=== PATIENT | female | born 1995 | race Caucasian/White ===

== ENCOUNTER 2019-03-26 16:19 | Outpatient (RCR) | payer BC, SELFPAY ==
--- NOTE | ~2019-03-26 | US_ITS ---
US umbilical doppler 03/26/2019 17:24 Indication: IUGR Procedure: Realtime limited obstetrical ultrasound including umbilical Doppler examination. Comparison: 02/26/2019 Findings: There is a single living intrauterine in breech presentation. heart rate is 143 BPM. Placenta is fundal without previa. Amniotic fluid is subjectively normal. Umbilical arteria l Doppler demonstrates peak systolic to end-diastolic velocity ratios of 3 (normal range for gestatio nal age is 2.32-4.33). Impression: 1: Single living intrauterine in breech presentation. 2: Normal S/D ratios of the umbilical artery. Reviewed, dictated and finalized at location A. STANT SURVEYOR Impression: 1: Single living intrauterine in breech presentation. 2: Normal S/D ratios of the umbilical artery.
== END 2019-05-29 07:53 | disposition home or self-care (01) ==
LOC: ANHOBOP 16:19
PROVIDERS: PCP Internal Medicine; Visit Provider Obstetrics & Gynecology
DX: O36.5990 Maternal care for other known or suspected poor fetal growth, unspecified trimester, not applicable or unspecified (principal); Z3A.00 Weeks of gestation of pregnancy not specified
CPT/HCPCS: 76820

== ENCOUNTER 2019-05-22 14:28 | Outpatient (RCR) | payer BC, SELFPAY ==
[2019-05-13 17:05] VITALS: BP 119/78; PULSE 93
[2019-05-16 11:31] VITALS: BP 112/75; PULSE 90
[2019-05-19 12:43] VITALS: BP 123/80; PULSE 94
--- NOTE | 2019-05-19 13:41 | PC.NURSE ---
Dr Barriga notified of BPP of 07/13 for movement. Informed of cord doppler results. Ok to dc home with movement precautions.
--- NOTE | 2019-05-19 13:46 | PC.NURSE ---
[id number] repeat NST after BPP remains reactive. MD notified.
--- NOTE | ~2019-05-22 | US_ITS ---
EXAMINATION: US OB BPP wo non-stress DATE: 05/13/2019 17:03 INDICATION: Small for gestational age, second trimester TECHNIQUE: Real-time pelvic ultrasound was performed. The interpreting radiologist was not present fo r the study. COMPARISON: 03/26/2019 FINDINGS: There is a single living fetus in vertex presentation. The placenta is fundal. heart rate is 14 7 beats per minute (bpm). Biophysical profile performed by the technologist: breathing (30 sec sustained breathing in 30 minutes): 2 out of 2 movement (3 gross body movements in 30 minutes): 2 out of 2 tone (one episode of hlbvdzl-mdemfeqow-qbyafuf limb movement): 2 out of 2 Amniotic fluid pocket (2 cm): 2 out of 2 Total score: 8 out of 8 IMPRESSION: 1. Single living fetus in vertex presentation. 2. Biophysical profile 8 out of 8. Reviewed, dictated and finalized at location A.
--- NOTE | ~2019-05-22 | US_ITS ---
EXAMINATION: US OB BPP wo non-stress DATE: 05/22/2019 16:13 CDT INDICATION: Hypertension. TECHNIQUE: Real-time transabdominal obstetric ultrasound. FINDINGS: 05/19/2019 There is a single living fetus in vertex presentation. The placenta is fundal without placenta previ a. cardiac activity and movement is noted with a heart rate of 132 beats per minute. Biophysical profile: breathin of 2 movement: 2 of 2 tone: 2 of 2 Amniotic flud pocket: 2 of 2 Total score: 8 of 8 IMPRESSION: 1. Single living intrauterine in vertex presentation. 2: Total biophysical profile score of 8/8. Reviewed, dictated and finalized at location A.
--- NOTE | ~2019-05-22 | US_ITS ---
EXAMINATION: US OB BPP wo non-stress, US umbilical doppler DATE: 05/19/2019 13:16 CDT INDICATION: Small for gestational age. TECHNIQUE: Real-time transabdominal obstetric ultrasound. FINDINGS: Comparison to multiple prior studies sequentially, with oldest reviewed study dated 020. There is a single living fetus in vertex presentation. The placenta is fundal without placenta previ a. cardiac activity and movement is noted with a heart rate of 119 beats per minute. Biophysical profile: breathin of 2 movement: 0 of 2 tone: 2 of 2 Amniotic flud pocket: 2 of 2 Total score: 6 of 8 Umbilical arterial Doppler demonstrates S/D ratio of 2.1 (normal range for gestational age is 1.98-3. 29 IMPRESSION: 1. Single living intrauterine in vertex presentation. 2: Total biophysical profile score of 6/8. 3: Normal umbilical artery systolic/diastolic ratios. Reviewed, dictated and finalized at location A. IMPRESSION: 1. Single living intrauterine in vertex presentation. 2: Total biophysical profile score of 6/8. 3: Normal umbilical artery systolic/diastolic ratios.
[2019-05-22 15:40] VITALS: BP 129/74; PULSE 102
== END 2019-05-29 07:53 | disposition home or self-care (01) ==
LOC: ANHOBOP 14:28
PROVIDERS: PCP Internal Medicine; Visit Provider Obstetrics & Gynecology
DX: O36.5930 Maternal care for other known or suspected poor fetal growth, third trimester, not applicable or unspecified (principal); Z3A.35 35 weeks gestation of pregnancy; Z3A.36 36 weeks gestation of pregnancy; Z3A.37 37 weeks gestation of pregnancy
CPT/HCPCS: 59025; 76819; 76820

== ENCOUNTER 2019-05-27 17:57 | Inpatient (IN) | payer BC, SELFPAY ==
[2019-05-27] VITALS (7 sets, daily range): BP systolic 116–127; BP diastolic 77–88; PULSE 85–103; TEMP 37.1; BMI 38.0
[2019-05-27] MEDS: DINOPROSTONE 10 MG VAG INSERT VAGINAL (19:01)
[2019-05-27 19:08] LABS: Basophils Percent Auto 0.3 % (0.2-1.2); Eosinophils Absolute Auto 0.2 K/mm3 (0-0.3); Eosinophils Percent Auto 1.7 % (0-4.4); Hematocrit 33.2 % (37.0-47.0); Hemoglobin 11.3 g/dL (12.0-15.0); Immature Granulocyte Absolute 0.03 K/mm3 (0.00-0.031); Immature Granulocyte Percent A 0.3 % (0-0.5); Lymphocytes Absolute Auto 2.39 K/mm3 (0.9-3.2); Lymphocytes Percent Auto 22.7 % (18.3-44.2); Mean Corpuscular Hemoglobin 29.7 pg (26-34); Mean Corpuscular Volume 87.1 fl (80-100); Mean Platelet Volume 12.1 fl (7.4-10.4); Monocytes Absolute Auto 0.6 K/mm3 (0.1-0.6); Monocytes Percent Auto 6.1 % (2.6-8.5); Neutrophils Absolute Auto 7.3 K/mm3 (1.3-6.7); Neutrophils Percent Auto 68.9 % (45.5-73.1); Platelet Count Result 155 k/mm3 (150-375); Red Blood Count 3.81 M/mm3 (4.2-5.4); Red Cell Distribution Width 13.1 % (11.5-14.5); White Blood Count 10.5 K/mm3 (4.5-10.0)
--- NOTE | 2019-05-27 19:38 | LDADM ---
This patient, Sandie Hartmann, was admitted to Labor/Delivery/Recovery 108 on 05/27/19 at 17:57. Plans for labor, pain management and were discussed with patient. Patient/family oriented to hospital policies and general routines including ID bracelet, bed and alarms, visiting hours, pain management, procedures, bathroom and other care routines, personal items, smoking policy, room service/diet and guest tray routines, infant security routines, and visiting hours. Patient/Family are encouraged to report perceived risks to care and to ask questions if they do not understand what they are told or what they should do. See OBIX for further documentation.
[2019-05-28] VITALS (91 sets, daily range): BP systolic 85–147; BP diastolic 23–117; PULSE 56–128; RESP 18; TEMP 36.4–37.2; O2SAT 95–100
[2019-05-28] MEDS: OXYTOCIN 30 UNITS/NS 500 ML 30 UNITS/500 ML BAG 6 UNITS IV CONT (05:23)
[2019-05-28] MEDS: LACTATED RINGERS 1,000 ML 125 ML IV CONT ×2 (05:23→08:19)
[2019-05-28 07:43] LABS: Rapid Plasma Reagin Non-Reactive (NonReactive)
--- NOTE | 2019-05-28 08:51 | WPDANESEPP ---
Anes - Eval Pre Procedure Procedure: labor epidural Date/Time: 05/28/19 08:51 Surgeon: cristal Pre Op Diagnosis: Induction Patient Data Age: 23 Gender: F Height: 1.57 m Weight: 94.5 kg Last Vital Signs Temp 37.2 C 05/28/19 07:30 Pulse 91 05/28/19 08:50 BP 110/72 05/28/19 08:50 Pulse Ox 99 05/28/19 08:50 Allergies Allergy/AdvReac Type Severity Reaction Status Date / Time Sulfa (Sulfonamide AdvReac Unknown Nausea and Verified 05/13/19 15:34 Antibiotics) Vomiting Home Medications Medication Instructions Recorded Confirmed Type PNV cmb#95-ferrous fumarate-FA 1 tablet PO DAILY 05/12/19 05/13/19 History [] aspirin [Aspirin Low Dose] 81 mg PO DAILY 05/12/19 05/13/19 History Laboratory Tests 05/27/19 05/27/19 05/27/19 18:57 18:57 18:57 WBC 10.5 K/mm3 H K/mm3 (4.5-10.0) RBC 3.81 M/mm3 L M/mm3 (4.2-5.4) Hgb 11.3 g/dL L g/dL (12.0-15.0) Hct 33.2 % L % (37.0-47.0) MCV 87.1 fl fl (80-100) MCH 29.7 pg pg (26-34) MCHC 34.0 g/dl g/dl (32-36) RDW 13.1 % % (11.5-14.5) Plt Count 155 k/mm3 k/mm3 (150-375) MPV 12.1 fl H fl (7.4-10.4) Immature Gran % (Auto) 0.3 % % (0-0.5) Neut % (Auto) 68.9 % % (45.5-73.1) Lymph % (Auto) 22.7 % % (18.3-44.2) [place] % (Auto) 6.1 % % (2.6-8.5) Eos % (Auto) 1.7 % % (0-4.4) Baso % (Auto) 0.3 % % (0.2-1.2) Lymph # (Auto) 2.39 K/mm3 K/mm3 (0.9-3.2) [place] # (Auto) 0.6 K/mm3 K/mm3 (0.1-0.6) Eos # (Auto) 0.2 K/mm3 K/mm3 (0-0.3) Baso # (Auto) 0.0 K/mm3 K/mm3 (0.0-0.1) Abs Immat Gran (auto) 0.03 K/mm3 K/mm3 (0.00-0.031) Absolute Neuts (auto) 7.3 K/mm3 H K/mm3 (1.3-6.7) Absolute Nucleated RBC 0.0 K/mm3 K/mm3 (0.0-0.012) Nucleated RBC % 0.0 % % (0.0-0.2) RPR Non-reactive (NonReactive) Blood Type A Positive Antibody Screen Negative Patient hx anesthesia problems: none Family hx anesthesia problems: none PMFSH Past Medical History Medical History (Updated 05/28/19 @ 08:54 by Natalie Ayers CRNA) Pyloric stenosis Family History Family History Father Family history of elevated blood lipids Hypertension Sibling Hypertension Blood clotting disorder Mother Asthma Social History Social History Smoking status: Never smoker Substance use: never Spiritual care concerns: No Exam Day of Procedure 05/28/19 08:51 Patient weight: overweight Heart: regular rate and rhythm Lungs: normal air movement Airway: Mallampati scale class II Neurological: alert and oriented
--- NOTE | 2019-05-28 11:59 | WPDHPUPDATE1 ---
History and Physical Update Update Date/Time: 05/28/19 11:59 History and Physical has been reviewed, including an updated exam of the patient. There are NO changes in the patient's condition. Risks, benefits, and alternatives have been discussed and questions answered. Patient agrees to proceed with procedure.
--- NOTE | 2019-05-28 11:59 | WPDOBADMIT ---
Obstetrics - Admit Note Admission Note: record reviewed. No pertinent additions to the history and/or any subsequent changes in the physical findings that are not consistent with the expected course of the were found. Additions to the history and/or subsequent changes in the physical findings follow. None.
--- NOTE | 2019-05-28 12:20 | PM.OBPRVD ---
OB - Delivery Note Procedure Delivery date: 05/28/19 Route of delivery: Laceration description: Perineal - 1st Degree Delivery repair: chromic Specimen: Yes Estimated blood loss (mL): 200 Anesthesia type: Epidural Disposition: floor Baby Weeks of gestation at delivery: 38 gender: Male Weight (pounds): 5 Weight (ounces): 13 presentation: vertex Placenta delivery description: Spontaneous score one minute: 8 score five minutes: 9
--- NOTE | 2019-05-28 12:23 | P.PCNOB_ITS ---
OB - Delivery Note Procedure Laceration description: Perineal - 1st Degree Estimated blood loss (mL): 200 Anesthesia type: Epidural Narrative: Patient prepped in usual sterile manner for this procedure. Maternal expulsive efforts readily delivered vertex which was section naso- oropharynx. Nuchal cord was noted and reduced x2. Rest of baby was delivered cord clamped and cut placenta delivered spontaneously cervix vagina and vulva were inspected with Dio first-degree midline laceration noted. Two 0 chromic was used to approximate vaginal tissue deep tissue in a subcuticular layer. This point seizure was considered terminated with immediate postop condition mother and baby both excellent. Baby Weeks of gestation at delivery: 38 Infant gender: Male Weight (pounds): 5 Weight (ounces): 13 presentation: vertex Placenta delivery description: Spontaneous score one minute: 8 score five minutes: 9
[2019-05-28] MEDS: OXYTOCIN 30 UNITS/NS 500 ML 30 UNITS/500 ML BAG 125 UNITS IV CONT (12:35)
--- NOTE | 2019-05-28 14:50 | PC.NURSE ---
PT arrived on unit via wheelchair accompanied by spouse and and taken to room 284. PT oriented to room and surrounding area. PT introductions made and plan of care discussed per post , pain management, breast feeding, daily care activities. Welcome packet reviewed and discussed. PT verbalized understanding of such care.
[2019-05-28] MEDS: DOCUSATE SODIUM 100 MG CAPSULE PO (16:34)
[2019-05-28] MEDS: IBUPROFEN 600 MG TABLET PO (16:34)
[2019-05-28] MEDS: LANOLIN (LANSINOH) 7.5 GM CREAM 1 APPLIC TOPICAL (16:36)
[2019-05-29 05:22] LABS: Hematocrit 30.2 % (37.0-47.0); Hemoglobin 10.2 g/dL (12.0-15.0)
[2019-05-29 08:00] VITALS: BP 121/83; PULSE 83; RESP 18; TEMP 36.6; O2SAT 98
--- NOTE | 2019-05-29 09:14 | WPDANLDPN2 ---
Anes-Prog Note L&D Date/Time: 05/29/19 09:14 Comfortable throughout: labor and delivery Neuraxial method: epidural Epidural/Spinal procedure site: clean & non-tender Neuro status: Neuro function grossly intact. Cardiovascular status: normal Respiratory status: normal Airway patency: baseline Mental status: baseline Post-Op hydration status: normal Vital Signs: Last Vital Signs Temp 37.0 C 05/28/19 20:00 Pulse 105 H 05/28/19 20:00 Resp 18 05/28/19 20:00 BP 115/74 05/28/19 20:00 Pulse Ox 98 05/28/19 16:00 I/O: Intake & Output 05/28/19 05/29/19 05/29/19 23:59 07:59 15:59 Intake Total 500 Balance 500 Patient feedback: Patient satisfied with anesthetic care.
--- NOTE | 2019-05-29 13:15 | PC.NURSE ---
Consult with pt., mother reports she attempted infant to breast and wishes to pump and bottle feed. Offered assist with latching if mother wishes. Mother has been set up with pump at bedside and is not pumping regularly. Discussed how stimulation will assist with establishing milk supply. Instructions given on breast pump care and usage, pumping schedule, nipple care, and collection and storage of breast milk. Encouraged [id number], breast massage and manual expression to stimulate supply. Assessed patient for correct flange size, placement and draw, mother reports she has no difficulties or discomfort with pumping. Patient verbalizes and demonstrates understanding of instructions.
--- NOTE | 2019-05-29 15:30 | PC.NURSE ---
Pt introductions made and plan of care discussed per post , pain management, breast pumping, bottle feeding, daily care activities. PT verbalized understanding of such care.
[2019-05-29] MEDS: IBUPROFEN 600 MG TABLET PO (17:19)
[2019-05-29] MEDS: DOCUSATE SODIUM 100 MG CAPSULE PO (17:19)
[2019-05-29] MEDS: WITCH HAZEL 40 PADS 1 PAD TOPICAL (17:23)
[2019-05-29] MEDS: BENZOCAINE 20% AER SPR (*SP) 56 GM CAN 1 SPRAY TOPICAL (17:23)
[2019-05-29 20:30] VITALS: BP 121/82; PULSE 75; RESP 14; TEMP 36.9; O2SAT 99
[2019-05-30] MEDS: MULTIVIT/MIN/PREN/FOL AC/IRON TABLET 1 TAB PO (07:07)
[2019-05-30] MEDS: ACETAMINOPHEN 325 MG TABLET 650 MG PO (07:07)
--- NOTE | 2019-05-30 07:42 | PM.OBDSVD ---
OB - DS: Summary OB Procedures : None OB Procedures Intrapartum: Spontaneous Vag Delivery OB Procedures: : None Time Spent with Patient Time attestation: Total time spent providing and/or coordinating discharge services: DS: Data Data Completed and Pending Pending studies at discharge: Pending at discharge 05/29/19 07:29 Surgical [PTH] Routine Discharge Plan Discharge Discharging Clinician: Jerry Barriga Patient Disposition: Home, Self-Care Activity: as tolerated Diet: as tolerated Patient Instructions: Antibiotic Form Stand Alone Forms: General Discharge Information Follow-up/Referrals: Jerry Barriga MD [Physician] - 3 Weeks Discharge Medications: New ibuprofen 600 mg Tablet 600 mg PO Q6H PRN (Reason: Cramping) Qty: 30 RF: 0 Continued PNV cmb#95-ferrous fumarate-FA [] 28 mg iron- 800 mcg Tablet 1 tablet PO DAILY RF: 0 Discontinued aspirin [Aspirin Low Dose] 81 mg Tablet,Delayed Release (Dr/Ec) 81 mg PO DAILY RF: 0 Date of admission: 05/27/19 17:57 Primary Care Provider: Himanshu,Adam Peterson Admitting Provider: Jerry Barriga Attending physician on admission: Jerry Barriga
[2019-05-30 08:05] VITALS: BP 135/90; PULSE 87; RESP 18; TEMP 37; O2SAT 98
--- NOTE | 2019-05-30 09:40 | PC.NURSE ---
Mother states she continues to pump without difficulties or discomfort. Discussed milk supply and may take a few days before she is able to transition to bottle feeding breastmilk. Mother states she feels confident to continue puming and bottle feeding home. Reviewed transition to breast milk, signs of adequate intake, and engorgement/relief. Instructed to call ICP if intake/output less than required. Reviewed regular medications mother is taking. Information provided per Leigh. Reviewed community resources on the [employer] website and in the Mom/Baby guide. Information on outpatient services provided. Mother has no further questions at this time.
[2019-05-31 07:48] VITALS: BP 119/88; PULSE 91; RESP 20; TEMP 36.6; O2SAT 100
== END 2019-05-30 12:05 | disposition home or self-care (01) | DRG 807 ==
LOC: ANHLDR 18:14 → ANHOB2 05-28 14:56
PROVIDERS: Admitting Provider Obstetrics & Gynecology; PCP Internal Medicine; Visit Provider Obstetrics & Gynecology
DX: O69.81X0 Labor and delivery complicated by cord around neck, without compression, not applicable or unspecified (principal); Z37.0 Single live birth; Z3A.38 38 weeks gestation of pregnancy; O70.0 First degree perineal laceration during delivery
CPT/HCPCS: 36415; 85014; 85018; 85025; 86592; 86850; 86900; 86901; 88307; A9270; J2590; J2795; J3010; J7120

== ENCOUNTER 2021-09-05 08:44 | Outpatient (CLI) | payer BC, SELFPAY ==
--- NOTE | 2021-09-05 08:44 | OBADM ---
This patient, Sandie Hartmann, admitted to the OB room OB Post 117 for observation. Patient/family oriented to hospital policies and general routines including ID bracelet, bed and alarms, visiting hours, pain management, procedures, bathroom and other care routines, personal items, smoking policy, room service/diet, and visiting hours. Patient/Family are encouraged to report perceived risks to care and to ask questions if they do not understand what they are told or what they should do.
[2021-09-05 08:55] VITALS: BP 130/83; PULSE 77
[2021-09-05 09:00] VITALS: BP 125/86; PULSE 84
[2021-09-05 09:15] VITALS: BP 120/95; PULSE 80
[2021-09-05 09:17] LABS: Basophils Percent Auto 0.3 % (0.2-1.2); Eosinophils Absolute Auto 0.1 K/mm3 (0-0.3); Eosinophils Percent Auto 1.9 % (0-4.4); Hematocrit 32.8 % (37.0-47.0); Hemoglobin 10.4 g/dL (12.0-15.0); Immature Granulocyte Absolute 0.02 K/mm3 (0.00-0.031); Immature Granulocyte Percent A 0.3 % (0-0.5); Lymphocytes Absolute Auto 1.54 K/mm3 (0.9-3.2); Lymphocytes Percent Auto 23.8 % (18.3-44.2); Mean Corpuscular HGB Conc 31.7 g/dl (32-36); Mean Corpuscular Hemoglobin 27.4 pg (26-34); Mean Corpuscular Volume 86.5 fl (80-100); Mean Platelet Volume 12.4 fl (7.4-10.4); Monocytes Absolute Auto 0.4 K/mm3 (0.1-0.6); Monocytes Percent Auto 6.2 % (2.6-8.5); Neutrophils Absolute Auto 4.4 K/mm3 (1.3-6.7); Neutrophils Percent Auto 67.5 % (45.5-73.1); Platelet Count Result 134 k/mm3 (150-375); Red Blood Count 3.79 M/mm3 (4.2-5.4); Red Cell Distribution Width 12.8 % (11.5-14.5); White Blood Count 6.5 K/mm3 (4.5-10.0)
[2021-09-05 09:25] LABS: Alanine Aminotransferase 14 U/L (6-35); Albumin Level 3.5 g/dL (3.5-5.1); Alkaline Phosphatase 148 U/L (38-126); Anion Gap 6 mmol/L (8-16); Aspartate Amino Transferase 23 U/L (14-36); Bilirubin,Total 0.4 mg/dL (0.2-1.3); Blood Urea Nitrogen 7 mg/dL (7-17); Calcium 8.5 mg/dL (8.4-10.2); Carbon Dioxide 24 mmol/L (22-30); Chloride 104 mmol/L (98-107); Estimated Glomerular Filt Rate > 60; Glucose 86 mg/dL (65-110); Potassium 3.9 mmol/L (3.4-5.0); Sodium 134 mmol/L (137-145); Uric Acid 4.7 mg/dL (2.5-7.5)
[2021-09-05 09:30] VITALS: BP 125/86; PULSE 79
[2021-09-05 10:21] LABS: Creatinine Urine 121.9 mg/dL; Total Protein Urine Random 18 mg/dL; Ur Ttl Prot Creatinine Ratio 0.15 mg/mg (0-0.20)
[2021-09-05 10:28] LABS: Add Urine Microscopic? YES; Appearance Urine Clear (Clear); Bilirubin Urine Negative (Negative); Blood Urine Negative (Negative); Color Urine Yellow (Yellow); Glucose Urine UA Negative (Negative); Ketones Urine Negative (Negative); Leukocyte Esterase Ur Negative LEU/UL (NEGATIVE); Nitrate Urine Negative (Negative); Protein Urine 1+ mg/dL (Negative); Urobilinogen Urine 0.2 mg/dL (<2.0)
--- NOTE | 2021-09-05 10:30 | PC.NURSE ---
Lab work and Blood pressures called to Dr. Barriga. T reactive. Will discharge pt home and pt to follow up in office on for recheck of blood pressure
[2021-09-05 10:44] LABS: Bacteria Urine Trace /hpf; Mucus Urine Rare /lpf; RBC Urine 0-2 /hpf (0-2); Squamous Epithelial Cell Urine Rare /hpf (Few); WBC Urine 0-3 /hpf (0-3)
== END 2021-09-05 10:40 | disposition home or self-care (01) ==
LOC: ANHOBOP 08:49 → ANHOBPP 08:51
PROVIDERS: PCP Internal Medicine; Visit Provider Obstetrics & Gynecology
DX: O13.9 Gestational [pregnancy-induced] hypertension without significant proteinuria, unspecified trimester (principal); Z3A.00 Weeks of gestation of pregnancy not specified
CPT/HCPCS: 36415; 59025; 80053; 81001; 82570; 84156; 84550; 85025; 87086; 99199

== ENCOUNTER 2021-09-07 14:43 | Inpatient (IN) | payer BC, SELFPAY ==
[2021-09-07] VITALS (16 sets, daily range): BP systolic 115–136; BP diastolic 83–101; PULSE 56–97; RESP 18; TEMP 36.3; O2SAT 98; BMI 38.1
--- NOTE | ~2021-09-07 | US_ITS ---
EXAMINATION: US OB BPP wo non-stress DATE: 09/07/2021 15:51 INDICATION: -induced hypertension TECHNIQUE: Real-time pelvic ultrasound was performed. The interpreting radiologist was not present fo r the study. COMPARISON: None. FINDINGS: There is a single living fetus in vertex presentation. The placenta is anterior. heart rate is 137 beats per minute (bpm). Normal amniotic fluid index of 13.0 cm . Biophysical profile performed by the technologist: breathing (30 sec sustained breathing in 30 minutes): 2 out of 2 movement (3 gross body movements in 30 minutes): 2 out of 2 tone (one episode of prrnjwx-mdtywlmta-etpupxq limb movement): 2 out of 2 Amniotic fluid pocket (2 cm): 2 out of 2 Total score: 8 out of 8 IMPRESSION: 1. Single living fetus in vertex presentation with heart rate of 137 bpm. 2. Biophysical profile 8 out of 8. 3. Normal amniotic fluid index of 13.0 cm. Reviewed, dictated and finalized at location A.
[2021-09-07 15:30] LABS: Basophils Percent Auto 0.2 % (0.2-1.2); Eosinophils Absolute Auto 0.1 K/mm3 (0-0.3); Eosinophils Percent Auto 1.7 % (0-4.4); Hematocrit 30.2 % (37.0-47.0); Hemoglobin 9.8 g/dL (12.0-15.0); Immature Granulocyte Absolute 0.03 K/mm3 (0.00-0.031); Immature Granulocyte Percent A 0.4 % (0-0.5); Lymphocytes Absolute Auto 2.13 K/mm3 (0.9-3.2); Lymphocytes Percent Auto 25.2 % (18.3-44.2); Mean Corpuscular HGB Conc 32.5 g/dl (32-36); Mean Corpuscular Volume 83.2 fl (80-100); Mean Platelet Volume 12.9 fl (7.4-10.4); Monocytes Absolute Auto 0.6 K/mm3 (0.1-0.6); Monocytes Percent Auto 6.5 % (2.6-8.5); Neutrophils Absolute Auto 5.6 K/mm3 (1.3-6.7); Platelet Count Result 132 k/mm3 (150-375); Red Blood Count 3.63 M/mm3 (4.2-5.4); Red Cell Distribution Width 12.8 % (11.5-14.5); White Blood Count 8.4 K/mm3 (4.5-10.0)
[2021-09-07 15:35] LABS: Appearance Urine Cloudy (Clear); Bilirubin Urine Negative (Negative); Color Urine Yellow (Yellow); Glucose Urine UA Negative (Negative); Ketones Urine Negative (Negative); Leukocyte Esterase Ur 1+ LEU/UL (NEGATIVE); Nitrate Urine Negative (Negative); Protein Urine 2+ mg/dL (Negative); Specific Grav Ur 1.025 (1.001-1.035); Urobilinogen Urine 0.2 mg/dL (<2.0)
[2021-09-07 15:39] LABS: Alanine Aminotransferase 13 U/L (6-35); Albumin Level 3.1 g/dL (3.5-5.1); Alkaline Phosphatase 136 U/L (38-126); Anion Gap 10 mmol/L (8-16); Aspartate Amino Transferase 20 U/L (14-36); Bilirubin,Total 0.3 mg/dL (0.2-1.3); Blood Urea Nitrogen 9 mg/dL (7-17); Calcium 8.5 mg/dL (8.4-10.2); Carbon Dioxide 18 mmol/L (22-30); Chloride 102 mmol/L (98-107); Estimated Glomerular Filt Rate > 60; Glucose 96 mg/dL (65-110); Potassium 3.5 mmol/L (3.4-5.0); Sodium 130 mmol/L (137-145); Uric Acid 4.4 mg/dL (2.5-7.5)
[2021-09-07 15:46] LABS: Amorphous Sediment Urine Few; Bacteria Urine 1+ /hpf; Mucus Urine Rare /lpf; Squamous Epithelial Cell Urine Many /hpf (Few); WBC Urine 31-50 /hpf (0-3)
[2021-09-07 15:47] LABS: Add Urine Microscopic? YES; Blood Urine Trace-Intact (Negative)
[2021-09-07 16:57] LABS: Creatinine Urine 180.9 mg/dL; Total Protein Urine Random 47 mg/dL; Ur Ttl Prot Creatinine Ratio 0.26 mg/mg (0-0.20)
--- NOTE | 2021-09-07 18:57 | WPDANESEPP ---
Anes - Eval Pre Procedure Procedure: labor epidural Date/Time: 09/07/21 18:57 Surgeon: cristal Pre Op Diagnosis: [facility] lab work up Patient Data Age: 26 Gender: F Height: Weight: Last Vital Signs Pulse 87 09/07/21 17:26 BP 119/92 H 09/07/21 17:26 Allergies Allergy/AdvReac Type Severity Reaction Status Date / Time Sulfa (Sulfonamide AdvReac Unknown Nausea and Verified 09/05/21 08:12 Antibiotics) Vomiting Home Medications Medication Instructions Recorded Confirmed Type vit no.95-ferrous 1 tablet PO DAILY 05/12/19 09/05/21 History fumarate 28 mg-folic acid 800 mcg tablet () Laboratory Tests 09/07/21 09/07/21 09/07/21 15:04 15:04 15:04 WBC 8.4 K/mm3 K/mm3 (4.5-10.0) RBC 3.63 M/mm3 L M/mm3 (4.2-5.4) Hgb 9.8 g/dL L g/dL (12.0-15.0) Hct 30.2 % L % (37.0-47.0) MCV 83.2 fl fl (80-100) MCH 27.0 pg pg (26-34) MCHC 32.5 g/dl g/dl (32-36) RDW 12.8 % % (11.5-14.5) Plt Count 132 k/mm3 L k/mm3 (150-375) MPV 12.9 fl H fl (7.4-10.4) Immature Gran % (Auto) 0.4 % % (0-0.5) Neut % (Auto) 66.0 % % (45.5-73.1) Lymph % (Auto) 25.2 % % (18.3-44.2) [place] % (Auto) 6.5 % % (2.6-8.5) Eos % (Auto) 1.7 % % (0-4.4) Baso % (Auto) 0.2 % % (0.2-1.2) Lymph # (Auto) 2.13 K/mm3 K/mm3 (0.9-3.2) [place] # (Auto) 0.6 K/mm3 K/mm3 (0.1-0.6) Eos # (Auto) 0.1 K/mm3 K/mm3 (0-0.3) Baso # (Auto) 0.0 K/mm3 K/mm3 (0.0-0.1) Abs Immat Gran (auto) 0.03 K/mm3 K/mm3 (0.00-0.031) Absolute Neuts (auto) 5.6 K/mm3 K/mm3 (1.3-6.7) Absolute Nucleated RBC 0.0 K/mm3 K/mm3 (0.0-0.012) Nucleated RBC % 0.0 % % (0.0-0.2) Sodium Potassium Chloride Carbon Dioxide Anion Gap BUN Creatinine Estim Creat Clear Calc Estimated GFR Glucose Uric Acid Calcium Total Bilirubin AST ALT Alkaline Phosphatase Total Protein Albumin Urine Color Yellow (Yellow) Urine Appearance Cloudy H (Clear) Urine pH 6.0 (5.0-9.0) Ur Specific [place] 1.025 (1.001-1.035) Urine Protein 2+ mg/dL H mg/dL (Negative) Urine Glucose (UA) Negative mg/dL mg/dL (Negative) Urine Ketones Negative mg/dL mg/dL (Negative) Ur Blood (Man) Trace-intact (Negative) Urine Nitrate Negative (Negative) Urine Bilirubin Negative (Negative) Urine Urobilinogen 0.2 mg/dL mg/dL (<2.0) Ur Leukocyte Esterase 1+ JONATHAN/UL H JONATHAN/UL (NEGATIVE) Urine RBC 6-10 /hpf H /hpf (0-2) Urine WBC 31-50 /hpf H /hpf (0-3) Ur Squamous Epith Cells Many /hpf H /hpf (Few) Amorphous Sediment Few H (None) Urine Bacteria 1+ /hpf H /hpf Urine Mucus Rare /lpf /lpf U Random Total Protein 47 mg/dL mg/dL Urine Creatinine 180.9 mg/dL mg/dL Protein/Creat Ratio 2 0.26 mg/mg H mg/mg (0-0.20) 09/07/21 15:04 WBC RBC Hgb Hct MCV MCH MCHC RDW Plt Count MPV Immature Gran % (Auto) Neut % (Auto) Lymph % (Auto) [place] % (Auto) Eos % (Auto) Baso % (Auto) Lymph # (Auto) [place] # (Auto) Eos # (Auto) Baso # (Auto) Abs Immat Gran (auto) Absolute Neuts (auto) Absolute Nucleated RBC Nucleated RBC % Sodium 130 mmol/L L mmol/L (137-145) Potassium 3.5 mmol/L mmol/L (3.4-5.0) Chloride 102 mmol/L mmol/L (98-107) Carbon Di
--- NOTE | 2021-09-07 21:22 | LDADM ---
This patient, Sandie Hartmann, was admitted to Labor/Delivery/Recovery 108 on 09/07/21 at 14:43. Plans for labor, pain management and were discussed with patient. Patient/family oriented to hospital policies and general routines including ID bracelet, bed and alarms, visiting hours, pain management, procedures, bathroom and other care routines, personal items, smoking policy, room service/diet and guest tray routines, infant security routines, and visiting hours. Patient/Family are encouraged to report perceived risks to care and to ask questions if they do not understand what they are told or what they should do. See OBIX for further documentation.
[2021-09-07] MEDS: DINOPROSTONE 10 MG VAG INSERT VAGINAL (22:34)
[2021-09-08] VITALS (95 sets, daily range): BP systolic 114–148; BP diastolic 66–97; PULSE 51–116; RESP 16; TEMP 36.4–36.9; O2SAT 97–100
[2021-09-08] MEDS: ACETAMINOPHEN 500 MG TABLET 1000 MG PO (00:47)
[2021-09-08] MEDS: LACTATED RINGERS 1,000 ML 125 ML IV CONT ×2 (05:50→06:35)
[2021-09-08] MEDS: OXYTOCIN 30 UNITS/NS 500 ML 30 UNITS/500 ML BAG IV CONT (05:50)
[2021-09-08] MEDS: fentaNYL CITRATE INJ (*CRX) 100 MCG/2 ML VIAL 50 MCG IV PUSH (06:07)
--- NOTE | 2021-09-08 10:12 | WPDHPUPDATE1 ---
History and Physical Update Update Date/Time: 09/08/21 10:12 History and Physical has been reviewed, including an updated exam of the patient. There are NO changes in the patient's condition. Risks, benefits, and alternatives have been discussed and questions answered. Patient agrees to proceed with procedure.
--- NOTE | 2021-09-08 10:14 | PM.OBPRVD ---
OB - Delivery Note Procedure Events: Gestational Hypertension Induction method: Per Cervidil Protocol Delivery augmentation: Pitocin Delivery monitor: External FHT and External Uterine Route of delivery: Episiotomy description: None Laceration Description: Perineal - 2nd Degree Delivery repair: chromic Specimen: Yes Quantitative Blood Loss (ml): 300 Anesthesia type: Epidural Disposition: Floor Complications: None Narrative: patient prepped in usual manner for this procedure. Maternal expulsive efforts readily delivered vertex over intact perineum. Rest baby was delivered without difficulty and placenta delivered as well. Cervix vagina and vulva were inspected with second-degree laceration noted. Vaginal tissue was approximated using 2 0 chromic in a running interlocking manner followed by subcuticular later to close the deep tissue and then a subcuticular layer to approximate the perineum. At this point the procedure was considered terminated there was no significant bleeding, uterus was well contracted, and immediate postoperative condition mother baby were both excellent. Baby Weeks of gestation at delivery: 37 Infant gender: Female Weight (pounds): 7 Weight (ounces): 0 presentation: vertex Placenta delivery description: Spontaneous score one minute: 9 score five minutes: 9 AMG Delivery Billing Delivery Delivery: Delivery Charge
[2021-09-08] MEDS: MAGNESIUM SULF 4 GM/WATER100ML 4 GM/100 ML BAG IVPB (10:23)
[2021-09-08] MEDS: OXYTOCIN 30 UNITS/NS 500 ML 30 UNITS/500 ML BAG 125 UNITS IV CONT (10:23)
[2021-09-08] MEDS: MAGNESIUM SULF 20GM/WATER500ML 500 ML 50 MG IV CONT ×2 (11:14→20:35)
[2021-09-08] MEDS: IBUPROFEN 600 MG TABLET PO (13:06)
--- NOTE | 2021-09-08 13:09 | OBPPTRN ---
1241-Patient transferred to post room #291 via wheelchair. Support person present. Oriented to unit, room, information board, rooming in, admission packet and security measures. Patient verbalizes understanding.
[2021-09-08 13:58] LABS: Rapid Plasma Reagin Non-Reactive (NonReactive)
--- NOTE | 2021-09-08 15:15 | PC.NURSE ---
[id number] Introductions were made, then consulted with patient to assess needs related to . Mother led the conversation with her?plans to feed?her infant and the?experience so far. Resources provided for inpatient and outpatient services using a resource guide and mom/baby guide. Mother voiced understanding of information and request assistance. Mother works well with her infant with encouragement and education. Encouraged understanding of the benefits of skin to skin (unwrapping infant and placing vertically on her chest), responsive feeding and how to watch for early feeding signs, frequency of feeding on demand about every 8-12 times in 24 hours (every 2-3 hours), milk production, duration of feeding, signs of adequate intake/output and how to record on the feeding sheet. Reviewed positioning and ear, shoulder, hip alignment, supporting the breast, asymmetrical latch (off-center), and leading with the chin with a big open side gape. Infant attempted latching several time to the right breast in football position but would slide off and tongue suck with nipple in the front of the mouth. to the nursery for a pilot instructor assessment, then infant quiet, alert and awake was taken back to mother and placed skin to skin. After feeding cues were visualized and infant moved on mothers breast with no latch attempt, mother hand expressed colostrum and 1 ml was syringe fed to by RN. Resources used to facilitate learning were used with the visual handouts/ tool/mom and baby guide. Mother voiced understanding of responsive feedings, stimulating with skin to skin, hand expressed colostrum, to encourage if it has been 2 -3 hours since the start of the last , to call if does not latch or there is discomfort with . Reported to the primary RN.
[2021-09-08] MEDS: DOCUSATE SODIUM 100 MG CAPSULE PO (16:14)
[2021-09-08] MEDS: ACETAMINOPHEN 325 MG TABLET 650 MG PO (16:14)
[2021-09-08] MEDS: POLYSACCHARIDE IRON COMPLEX 150 MG CAPSULE PO (16:14)
[2021-09-08] MEDS: LACTATED RINGERS 1,000 ML 70 ML (19:35)
[2021-09-09] VITALS (8 sets, daily range): BP systolic 122–135; BP diastolic 83–92; PULSE 66–88; RESP 16–18; TEMP 36.3–36.9; O2SAT 98–100
[2021-09-09 05:29] LABS: Hematocrit 29.1 % (37.0-47.0); Hemoglobin 9.3 g/dL (12.0-15.0)
--- NOTE | 2021-09-09 08:00 | PC.NURSE ---
PT introductions made and plan of care discussed per post , pain management, daily care activities and breast feeding. PT and spouse both recipients of such instructions and received instructions per one to one discussion, mom baby care guide and demonstrations this shift. PT verbalized understanding of such care.
--- NOTE | 2021-09-09 08:12 | PM.OBPNVD ---
OB - PN: Subj Subjective Date/time seen: 09/09/21 08:12 day 1. She is this is going well. No other complaints or concerns, no headaches blurred vision or increased swelling. Mild elevation in blood pressure therefore will initiate labetalol [id number] twice daily Likely discharge home tomorrow if no significant changes in her clinical situation with follow-up both at the hospital and in the office within the 1st week. OB - PN: Obj Data Labs CBC & Chem 7: 09/09/21 04:00 09/07/21 15:04 Labs: Laboratory Results - last 24 hr 09/07/21 09/09/21 20:40 04:00 Hgb 9.3 L Hct 29.1 L RPR Non-reactive OB - PN A/P Time Spent With Patient Time: Total time spent is greater than 50% in coordination of care (as documented) at patient's floor/unit and/or counseling patient:
[2021-09-09] MEDS: IBUPROFEN 600 MG TABLET PO ×2 (10:37→17:05)
[2021-09-09] MEDS: ACETAMINOPHEN 325 MG TABLET 650 MG PO ×2 (10:38→17:06)
[2021-09-09] MEDS: LABETALOL HCL 100 MG TABLET PO ×2 (10:39→21:00)
[2021-09-09] MEDS: DOCUSATE SODIUM 100 MG CAPSULE PO ×2 (10:40→17:05)
[2021-09-09] MEDS: POLYSACCHARIDE IRON COMPLEX 150 MG CAPSULE PO ×2 (10:40→17:05)
[2021-09-09] MEDS: MULTIVIT/MIN/PREN/FOL AC/IRON TABLET 1 TAB PO (10:40)
--- NOTE | 2021-09-09 10:40 | PC.NURSE ---
[id number] Consulted with patient to assess needs related to . Mother led conversation with her experience with feeding baby so far and states she is pumping every 2 hours, syringe feeding her while allowing infant to practice sucking on a finger, and supplementing with formula. Reviewed risks and benefits of 37 EGA and the amount of supplementing. Mother works well with her with encouragement. Reviewed working with , breast, nipples and how to protect the nipples with an optimal deep latch, good positioning, and good hand washing. Encouraged understanding the benefits of skin to skin, responding to feeding cues, frequencies of feeding 8-12 times in 24 hours (approximately 2-3 hours), duration of feedings, milk production, and infant's wet diaper was changed, then placed skin to skin with mother. Resources used to facilitate learning were used from the mom and baby guide. Mother voiced understanding of the education shared, calling for assistance if the infant does not latch or if there is discomfort with . Primary RN entered the room. RN will return later.
--- NOTE | 2021-09-09 13:15 | PC.NURSE ---
[id number] Consulted with patient to assess needs related to . Reviewed working with infant, breast, nipples and how to protect the nipples with an optimal deep latch, good positioning, and good hand washing. Mother works well with her holding skin to skin, stimulating to wake and eat, responding to feeding cues, encouraging swallowing at the breast. Reviewed positioning and alignment, supporting breast, off-centered (asymmetrical latch) and leading with the chin with big open wide gape. latched optimally to the right breast in football position after several attempts. At times infant will approach the breast with a big, open, wide gape, then take a few sucks and let go of the breast, then hold the nipple in her mouth or suck on the nipple. Mother encouraged to teach infant optimal latching. Education given to mother of how to visualize suck/swallow ratios and drinking at the breast. was able to maintain latch without discomfort to mother encouraged initially with the 1 1/2 mls of colostrum from a syringe that had been pumped from mother within 4 hours ago. continued swallowing after the syringe feeding was completed with good rocking motion and suck/swallow ratios. Nipple care reviewed with optimal latch and good positioning, comfort, healing with warm, wet washcloth to rinse breast, then leave open to air-dry, colostrum may be left on nipples to dry but have clean hands when touching the nipple/breast as needed. Resources used to facilitate learning from the QR code for latching to the breast and the mom/baby guide. Mother voiced understanding of the education shared, calling for assistance with latching, if the infant does not latch or if there is discomfort with . Reported to the primary RN.
--- NOTE | 2021-09-10 07:56 | PM.OBDSVD ---
DS: Admitting Diagnosis Discharge Date 09/10/2021 Admitting Diagnosis OB - DS: Summary OB Procedures : None OB Procedures Intrapartum: Spontaneous Vag Delivery OB Procedures: : None Time Spent with Patient Time attestation: Total time spent providing and/or coordinating discharge services: DS: Data Data Completed and Pending Pending studies at discharge: Pending at discharge 09/08/21 09:48 Surgical [PTH] Routine Discharge Plan Discharge Discharging Clinician: Jerry Barriga Patient Disposition: Home, Self-Care Activity: as tolerated Diet: as tolerated Patient Instructions: Antibiotic Form Stand Alone Forms: General Discharge Information Follow-up/Referrals: Jerry Barriga MD [Physician] - 3 Weeks Discharge Medications: New ibuprofen 600 mg Tablet 600 mg PO Q6H PRN (Reason: Cramping) Qty: 30 0RF labetalol 100 mg Tablet 100 mg PO Q12HR Qty: 60 1RF Continued PNV [id number]-ferrous fumarate-FA [] 28 mg iron- 800 mcg Tablet 1 tablet PO DAILY Date of admission: 09/07/21 14:43 Primary Care Provider: Himanshu,Adam Peterson Admitting Provider: Jerry Barriga Attending physician on admission: Jerry Barriga Condition: Stable
[2021-09-10 08:00] VITALS: PULSE 68; RESP 18; O2SAT 97
[2021-09-10 11:05] VITALS: BP 124/78; PULSE 68; RESP 18; TEMP 36.4; O2SAT 97
[2021-09-10 11:33] VITALS: PULSE 68
[2021-09-10] MEDS: LABETALOL HCL 100 MG TABLET PO (11:33)
[2021-09-10] MEDS: POLYSACCHARIDE IRON COMPLEX 150 MG CAPSULE PO (11:33)
[2021-09-10] MEDS: DOCUSATE SODIUM 100 MG CAPSULE PO (11:33)
[2021-09-10] MEDS: IBUPROFEN 600 MG TABLET PO (11:34)
[2021-09-10] MEDS: MULTIVIT/MIN/PREN/FOL AC/IRON TABLET 1 TAB PO (11:34)
--- NOTE | 2021-09-10 12:59 | PC.NURSE ---
Patient viewed the discharge video Mother & Baby Care, The First Two Weeks . Patient was given the opportunity and encouraged to ask questions. Patient verbalized understanding of information shared and has been given the mother/baby guide for home reference.
[2021-09-10] MEDS: MEASLES,MUMPS,RUBELLA VACCINE 0.5 ML VIAL SUB-Q (13:48)
[2021-09-12 10:56] VITALS: BP 130/90; PULSE 67; RESP 20; TEMP 36.9; O2SAT 98
== END 2021-09-10 15:50 | disposition home or self-care (01) | DRG 807 ==
LOC: ANHOBOP 17:56 → ANHLDR 17:57 → ANHOB2 09-08 12:47
PROVIDERS: Admitting Provider Obstetrics & Gynecology; PCP Internal Medicine; Visit Provider Obstetrics & Gynecology
DX: O13.4 Gestational [pregnancy-induced] hypertension without significant proteinuria, complicating childbirth (principal); Z37.0 Single live birth; Z3A.37 37 weeks gestation of pregnancy; O70.1 Second degree perineal laceration during delivery; O77.0 Labor and delivery complicated by meconium in amniotic fluid
CPT/HCPCS: 36415; 59025; 76819; 80053; 81001; 82570; 84156; 84550; 85014; 85018; 85025; 86592; 86850; 86900; 86901; 87086; 88307; 90710; A9270; J2590; J2795; J3010; J3475; J7120

== ENCOUNTER 2021-11-24 10:57 | Outpatient (CLI) | payer BC, SELFPAY ==
[2021-11-24 12:12] LABS: Beta HCG Quantitative < 2.39 mIU/ML
== END 2021-11-24 10:58 | disposition home or self-care (01) ==
LOC: ANHLAB 10:59
PROVIDERS: PCP Internal Medicine; Visit Provider Obstetrics & Gynecology
DX: N92.6 Irregular menstruation, unspecified (principal)
CPT/HCPCS: 36415; 84702

== ENCOUNTER 2023-06-26 17:21 | Emergency (ER) | payer BC, SELFPAY ==
--- NOTE | ~2023-06-26 | XR_ITS ---
EXAMINATION: XR ankle RT min 3V DATE: 06/26/2023 18:02 INDICATION: Right ankle injury TECHNIQUE: Anteroposterior, oblique, mortise, and lateral views of the right ankle were obtained. COMPARISON: None. FINDINGS: Alignment is normal. No fracture. Joint spaces are well maintained. No ankle joint effusion. Soft t issue swelling about the lateral malleolus. IMPRESSION: 1. No osseous abnormality at the right ankle and visualized foot Reviewed, dictated and finalized at location A.
[2023-06-26 17:29] VITALS: BP 123/83; PULSE 71; RESP 16; TEMP 36.9; O2SAT 100
--- NOTE | 2023-06-26 17:43 | ED.LOWEXIN ---
HPI - Extremity Injury (Lower) General Chief Complaint: Extremity Injury, Lower Stated Complaint: INJURED R ANKLE Time Seen by Provider: 06/26/23 17:42 Source: patient, RN notes reviewed and old records reviewed Mode of arrival: ambulatory Limitations: no limitations History of Present Illness HPI Narrative: 27 year old female accompanied by spouse with complaints of injury to her right ankle on Sunday when he got out of bed and foot was asleep and when she stood up she rolled her ankle. She has been using an ankit wrap to her right ankle and has been taking Ibuprofen for her discomfort. Patient reports that her pain is mainly on anterior ankle area on lateral ankle area below calcaneus. Patient has been able to apply weight bearing to her foot and did work today and tried to sit as much as possible, swelling to right ankle present. MD complaint: ankle injury (right) Onset (ago): day(s) (4) Injury: Right: ankle Type of Injury: other (twisted) Place: home Severity scale (1-10): 4 Associated symptoms: swelling Treatments prior to arrival: NSAIDS Related Data Home Medications Medication Instructions Recorded Confirmed No Home Medications 02/22/22 06/26/23 Allergies Allergy/AdvReac Type Severity Reaction Status Date / Time Sulfa (Sulfonamide AdvReac Unknown Nausea and Verified 06/26/23 17:34 Antibiotics) Vomiting Review of Systems Review of Systems: CONSTITUTIONAL: Denies fever, chills, or sweats. EYES: Denies visual changes, redness, or discharge. ENT: Denies rhinorrhea, congestion, sore throat, or otalgia. CARDIOVASCULAR: Denies chest pain, palpitations, or edema. RESPIRATORY: Denies cough or dyspnea. GASTROINTESTINAL: Denies abdominal pain, nausea, vomiting, or diarrhea. GENITOURINARY: Denies dysuria or hematuria. SKIN: Denies rash or itching. MUSCULOSKELETAL: Denies back pain, positive for right ankle pain, or myalgia. NEUROLOGIC: Denies headache, numbness, or weakness. PSYCHIATRIC: Denies anxiety or depression. All systems reviewed & are unremarkable except as noted in HPI and below PMFSH Past Medical History Medical History Anxiety and depression Bicuspid aortic valve Encounter for IUD insertion (11/25/21) High cholesterol Irregular periods Pyloric stenosis Suppression of menstruation Surgical History Surgical History History of gastrointestinal surgery (95) Pyloric stenosis History of gynecological procedure (01/15/14) mirena iud insertion History of gynecological procedure (06/26/18) mirena iud removal S/P tonsillectomy (07/07/99) Family History Family History Father Family history of elevated blood lipids Hypertension Sibling Hypertension Blood clotting disorder Mother Asthma Social History Social History Smoking status: Never smoker Second hand tobacco smoke exposure: No Alcohol intake: never Substance use: never Substance use type: does not use Do You Feel Safe in your Home?: Yes Lack of Transportation: No Lack of Food: Never True Current Housing: I Have Housing Concerned About Future Housing: No Difficulty Paying Gas/Electric Bills: No Difficulty Paying for Meds: No Currently Unemployed: No Education: Bachelor's Degree Difficulty w/ Childcare or Family Care: No Living arrangements: with family Additional living arrangements comments: spouse Occupation/Education: occupation 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 There is no r
== END 2023-06-26 18:20 | disposition home or self-care (01) ==
PROVIDERS: Emergency Provider Registered Nurse
DX: S93.401A Sprain of unspecified ligament of right ankle, initial encounter (principal); S96.911A Strain of unspecified muscle and tendon at ankle and foot level, right foot, initial encounter; X50.9XXA Other and unspecified overexertion or strenuous movements or postures, initial encounter; E78.00 Pure hypercholesterolemia, unspecified
CPT/HCPCS: 73610; 99213; G0463

== ENCOUNTER 2023-11-13 18:17 | Emergency (ER) | payer BC, SELFPAY ==
[2023-11-13 18:53] VITALS: BP 132/90; PULSE 119; RESP 16; TEMP 37.4; O2SAT 96
--- NOTE | 2023-11-13 19:44 | ED.GENADULT ---
HPI - General Adult General Chief complaint: Upper Respiratory Infection Stated complaint: congestion,fever Time Seen by Provider: 11/13/23 19:30 Source: patient, RN notes reviewed and old records reviewed Mode of arrival: ambulatory Limitations: no limitations History of Present Illness HPI narrative: 28 year old female who presents to [facility] with complaints of 3-4 day history of cough and congestion, with some sinus pressure and also body aches with chills and fevers noted for the past 2 days, Patient reports that she has had had some green tinged nasal mucous. She states that she has been taking Tylenol, nasal decongestant and medication for congestion OTC without resolution in her symptoms. MD complaint: headaches, body aches, congestion and fevers. Onset (ago): day(s) (3-4) Severity: moderate Treatments prior to arrival: other (Tylenol, decongestant, sinus medication) Related Data Allergies Allergy/AdvReac Type Severity Reaction Status Date / Time Sulfa (Sulfonamide AdvReac Unknown Nausea and Verified 11/13/23 19:35 Antibiotics) Vomiting Review of Systems Review of Systems: CONSTITUTIONAL: Reports malaise, chills, sweats, or fever. EYES: Denies visual changes, redness, or discharge. ENT: Reports rhinorrhea, congestion, sinus pain, no otalgia and no sore throat. CARDIOVASCULAR: Denies chest pain, palpitations, or edema. RESPIRATORY: Reports cough.? Denies dyspnea. GASTROINTESTINAL: Denies abdominal pain, nausea, vomiting, diarrhea SKIN: Denies rash or itching. MUSCULOSKELETAL: Reports myalgia. NEUROLOGIC: reports headache. All systems reviewed & are unremarkable except as noted in HPI and below PMFSH Past Medical History Medical History Anxiety and depression Bicuspid aortic valve Encounter for IUD insertion (11/25/21) High cholesterol Irregular periods Pyloric stenosis Suppression of menstruation Surgical History Surgical History History of gastrointestinal surgery (95) Pyloric stenosis History of gynecological procedure (01/15/14) mirena iud insertion History of gynecological procedure (06/26/18) mirena iud removal S/P tonsillectomy (07/07/99) Family History Family History Father Family history of elevated blood lipids Hypertension Sibling Hypertension Blood clotting disorder Mother Asthma Social History Social History Smoking status: Never smoker Second hand tobacco smoke exposure: No Alcohol intake: never Substance use: never Substance use type: does not use Do You Feel Safe in your Home?: Yes Lack of Transportation: No Lack of Food: Never True Current Housing: I Have Housing Concerned About Future Housing: No Difficulty Paying Gas/Electric Bills: No Difficulty Paying for Meds: No Currently Unemployed: No Education: Bachelor's Degree Difficulty w/ Childcare or Family Care: No Living arrangements: with family Additional living arrangements comments: spouse Occupation/Education: occupation Additional occupation/education comments: universal banker Gender identity (if verbalized by the patient): Female Sexual Orientation (if Verbalized by the Patient): Straight or Heterosexual Spiritual care concerns: No Comments At time of signature, agree with nursing past medical, surgical, social and family history. There is no relevant family history pertinent to the presenting complaint Exam Narrative: GENERAL: Well-appearing, well-nourished, and in no acute distress. HEAD: Normocephalic EYES: PERRLA, conjunctivae clear esent ENT: Nares clear, turbinates edematous and erythematous, greenish tinged discharge, sinus pressure headache,. Mucous membranes moist. TM pearly ivory with dull light ref
[2023-11-13 19:47] LABS: EDINFLUASCREEN Negative (Negative); EDINFLUBSCREEN Negative (Negative)
== END 2023-11-13 19:54 | disposition home or self-care (01) ==
PROVIDERS: Emergency Provider Registered Nurse
DX: J06.9 Acute upper respiratory infection, unspecified (principal); Z20.822 Contact with and (suspected) exposure to COVID-19; E78.00 Pure hypercholesterolemia, unspecified
CPT/HCPCS: 87635; 87804; 99213; G0463